=== PATIENT | male | born 2000 | race African-American/Black ===

== ENCOUNTER 2018-08-04 17:25 | Emergency (ER) | payer BC ==
[~2018-08-04] VITALS: Ht 182.9 cm; Wt 74.5 kg
[2018-08-04 17:33] VITALS: TEMP 99.1
[2018-08-04 19:52] LABS: BASO # 0.1 (0.0-0.2); BASO % 0.5 % (0.0-2.0); EOS # 0.1 (0.0-0.7); EOS % 0.9 % (0-4.0); GRAN # 5.9 (1.4-6.5); GRAN % 64.1 % (42.2-75.2); HEMATOCRIT 47.9 % (36.0-47.0); HEMOGLOBIN 16.4 g/dl (12.5-16.1); LYMPH # 2.6 (1.2-3.4); LYMPH % 28.1 % (20.0-51.0); MEAN CELL VOLUME 91 fl (80.0-95.0); MEAN CORPUSCULAR HEMOGLOBIN 31 pg (26.0-32.0); MEAN CORPUSCULAR HGB CONC 34 g/dl (33.0-37.0); MEAN PLATELET VOLUME 11.3 fl (7.4-10.4); MONO # 0.6 (0.1-0.6); MONO % 6.1 % (1.7-9.3); PLATELET COUNT 248 K/mm3 (130-400); RED BLOOD COUNT 5.27 M/mm3 (4.20-5.60); REDCELL DISTRIBUTION WIDTH-CV 13.9 % (11.5-14.5)
[2018-08-04 19:59] LABS: ALBUMIN 4.6 gm/dL (3.5-5.0); BILIRUBIN,TOTAL 0.8 mg/dL (0.0-1.0); CALCIUM 9.5 mg/dL (8.4-10.2); CREATININE, serum 0.77 mg/dL (0.66-1.25); POTASSIUM 3.7 mmol/L (3.4-5.0); TOTAL PROTEIN 7.9 gm/dL (6.4-8.2)
[2018-08-04 20:29] LABS: TSH w REFLEX 1.47 uIU/mL (0.465-4.680)
[2018-08-04 20:48] VITALS: BP 114/65; PULSE 72
== END 2018-08-04 20:50 | disposition home or self-care (01) ==
LOC: COL.ER 17:25
PROVIDERS: Nurse Practitioner
DX: R42 Dizziness and giddiness (principal); F17.210 Nicotine dependence, cigarettes, uncomplicated; F12.90 Cannabis use, unspecified, uncomplicated
CPT/HCPCS: J7030

== ENCOUNTER 2019-05-08 18:38 | Emergency (ER) | payer SELFPAY ==
[~2019-05-08] VITALS: Ht 185.4 cm; Wt 75.0 kg
[2019-05-08 18:41] VITALS: BP 127/71; TEMP 98.4
[2019-05-08 19:13] LABS: COLLECTION METHOD CLEAN CATCH
[2019-05-08 19:19] LABS: PH 9 (5-8); SQUAMOUS EPITHELIAL None Seen /hpf; URINE APPEARANCE Clear; URINE BACTERIA None Seen /hpf; URINE BILIRUBIN Negative (NEGATIVE); URINE BLOOD Negative (NEGATIVE); URINE COLOR Yellow; URINE GLUCOSE Negative (NEGATIVE); URINE KETONE Negative (NEGATIVE); URINE LEUKOCYTE ESTERASE Negative (NEGATIVE); URINE NITRATE Negative (NEGATIVE); URINE PROTEIN(semi-quant) Negative (NEGATIVE); URINE RBC 0-2 /hpf; URINE UROBILINOGEN Negative (NEGATIVE)
[2019-05-08 20:17] LABS: BASO # 0.1 (0.0-0.2); BASO % 0.7 % (0.0-2.0); EOS # 0.1 (0.0-0.7); EOS % 0.5 % (0-4.0); GRAN # 9.2 (1.4-6.5); GRAN % 85.1 % (42.2-75.2); HEMATOCRIT 48.9 % (42.0-52.0); HEMOGLOBIN 16.9 g/dl (13.5-18.0); LYMPH % 9.1 % (20.0-51.0); MEAN CELL VOLUME 92 fl (80.0-100.0); MEAN CORPUSCULAR HEMOGLOBIN 32 pg (27.0-31.0); MEAN CORPUSCULAR HGB CONC 35 g/dl (33.0-37.0); MEAN PLATELET VOLUME 11.1 fl (7.4-10.4); MONO # 0.4 (0.1-0.6); MONO % 4.1 % (1.7-9.3); PLATELET COUNT 246 K/mm3 (130-400); RED BLOOD COUNT 5.34 M/mm3 (4.20-5.60); REDCELL DISTRIBUTION WIDTH-CV 13.9 % (11.5-14.5)
[2019-05-08 20:30] LABS: ALANINE AMINOTRANSFERASE 46 U/L (21-72); ALBUMIN 5.1 gm/dL (3.5-5.0); ALKALINE PHOSPHATASE 63 U/L (50-136); ANION GAP 10 mmol/L (7-16); AST,SGOT 29 U/L (15-37); BILIRUBIN,TOTAL 0.8 mg/dL (0.0-1.0); BLOOD UREA NITROGEN 4 mg/dL (9-20); C-REACTIVE PROTEIN < 0.5 mg/dL (0.0-0.9); CALCIUM 10.1 mg/dL (8.4-10.2); CARBON DIOXIDE 28 mmol/L (22-30); CHLORIDE 105 mmol/L (98-107); CREATININE, serum 0.78 (0.66-1.25); GLUCOSE 96 mg/dL (74-106); LIPASE 27 U/L (23-300); POTASSIUM 3.8 mmol/L (3.4-5.0); SODIUM 143 mmol/L (137-145); TOTAL PROTEIN 8.4 gm/dL (6.4-8.2)
[2019-05-08 21:00] VITALS: PULSE 80
[2019-05-08] MEDS ORDERED: ZOFRAN ODT4 MG PO (21:09)
== END 2019-05-08 21:10 | disposition home or self-care (01) ==
LOC: COL.ER 18:38
PROVIDERS: Nurse Practitioner
DX: R11.2 Nausea with vomiting, unspecified (principal); R19.7 Diarrhea, unspecified; R10.84 Generalized abdominal pain; Z87.891 Personal history of nicotine dependence
CPT/HCPCS: J1885; J2550; J7030

== ENCOUNTER 2019-06-26 09:57 | Emergency (ER) | payer SELFPAY ==
[~2019-06-26] VITALS: Ht 185.4 cm; Wt 81.8 kg
[~2019-06-26 09:57] MED LIST: ZOFRAN ODT4 MG PO
[2019-06-26 10:02] VITALS: BP 123/75; TEMP 99
[2019-06-26] MEDS ORDERED: ZOFRAN ODT4 MG PO (10:46)
[2019-06-26 11:39] VITALS: PULSE 78
== END 2019-06-26 11:40 | disposition home or self-care (01) ==
LOC: COL.ER 09:57
DX: J10.1 Influenza due to other identified influenza virus with other respiratory manifestations (principal); Z87.891 Personal history of nicotine dependence

== ENCOUNTER → 2020-03-15 | Outpatient (CLI) | payer SELFPAY ==
[2020-03-15 17:15] VITALS: BP 119/72; PULSE 75
== END ==
LOC: COL.ER 16:49
DX: Z48.02 Encounter for removal of sutures (principal)

== ENCOUNTER 2023-12-30 00:11 | Emergency (ER) | payer SELFPAY ==
[~2023-12-30] VITALS: Ht 182.9 cm; Wt 81.8 kg
[2023-12-30] MEDS ORDERED: diphenhydrAMINE 50 MG/ML 1 ML VIAL IV ONE (00:45)
[2023-12-30] MEDS ORDERED: NS 1,000 ML IV ONE (00:45)
[2023-12-30 01:27] LABS: BASO # 0.1 K/mm3 (0.0-0.2); BASO % 0.5 % (0.0-2.0); EOS % 0.1 % (0.0-4.0); GRAN # 15.1 K/mm3 (1.4-6.5); GRAN % 88.2 % (42.2-75.2); HEMATOCRIT 43.1 % (42.0-52.0); HEMOGLOBIN 14.8 g/dl (13.5-18.0); LYMPH # 1.3 K/mm3 (1.2-3.4); LYMPH % 7.7 % (20.0-51.0); MEAN CELL VOLUME 89 fl (80.0-100.0); MEAN CORPUSCULAR HEMOGLOBIN 30 pg (27-31); MEAN CORPUSCULAR HGB CONC 34 g/dl (33.0-37.0); MEAN PLATELET VOLUME 11.1 fl (7.4-10.4); MONO # 0.5 K/mm3 (0.1-0.6); MONO % 3.1 % (1.7-9.3); PLATELET COUNT 288 K/mm3 (130-400); RED BLOOD COUNT 4.87 M/mm3 (4.20-5.60)
[2023-12-30 01:51] LABS: ACETONE,SERUM NEGATIVE
[2023-12-30 01:59] LABS: ALANINE AMINOTRANSFERASE 26 U/L (0-55); ALBUMIN 4.9 g/dL (3.5-5.0); ALKALINE PHOSPHATASE 57 U/L (40-150); ANION GAP 14 mmol/L (7-16); AST,SGOT 15 U/L (5-34); BILIRUBIN,TOTAL 0.5 mg/dL (0.2-1.2); BLOOD UREA NITROGEN 15 mg/dL (9-21); CALCIUM 9.2 mg/dL (8.4-10.2); CHLORIDE 105 mEq/L (98-107); CREATININE, serum 0.96 mg/dL (0.72-1.25); GLUCOSE 178 mg/dL (70-99); POTASSIUM 3.6 mEq/L (3.5-4.5); SODIUM 142 mEq/L (136-145)
[2023-12-30] MEDS ORDERED: Iohexol 300 - 100 ML VIAL IV ONE (02:13)
[2023-12-30] MEDS ORDERED: NS 50 ML IV ONE (02:14)
[2023-12-30] MEDS ORDERED: Ondansetron 4 MG/2 ML VIAL IV ONE (02:45)
[2023-12-30 02:59] LABS: COLLECTION METHOD CLEAN CATCH
[2023-12-30 03:08] LABS: PH 5.5 (5.0-8.5); URINE APPEARANCE CLEAR (CLEAR/HAZY); URINE BLOOD 2+ (NEGATIVE); URINE COLOR YELLOW (YELLOW); URINE GLUCOSE TRACE (NEGATIVE); URINE KETONE TRACE (NEGATIVE); URINE NITRATE NEGATIVE (NEGATIVE); URINE PROTEIN(semi-quant) NEGATIVE (NEGATIVE); URINE UROBILINOGEN 0.2 E.U/dL (0.2-1.0)
[2023-12-30] MEDS ORDERED: Morphine 4 MG/ML VIAL IV ONE (03:15)
[2023-12-30] MEDS ORDERED: Ketorolac 15 MG/ML VIAL IV ONE (03:15)
[2023-12-30] MEDS ORDERED: ZOFRAN ODT4 MG PO (03:49)
[2023-12-30] MEDS ORDERED: NAPROSYN500 MG PO (03:49)
[2023-12-30 03:53] VITALS: BP 121/75; PULSE 61; TEMP 98.6
[2023-12-30 07:25] LABS: LIPASE 13 U/L (8-78)
== END 2023-12-30 03:53 | disposition home or self-care (01) ==
LOC: COL.ER 00:11
PROVIDERS: Emergency Medicine
DX: N13.2 Hydronephrosis with renal and ureteral calculous obstruction (principal); E11.9 Type 2 diabetes mellitus without complications; Z79.4 Long term (current) use of insulin
CPT/HCPCS: J1200; J1885; J2270; J2405; J2765; J7030; Q9967